=== PATIENT | female | born 1990 | race Caucasian/White ===

== ENCOUNTER 2017-06-11 07:15 | Emergency (ER) | payer BC ==
[2017-06-11] MEDS: LIDOCAINE 2% MDV 20 ML VIAL SC (08:00)
== END 2017-06-11 09:00 | disposition home or self-care (01) ==
LOC: M ED 07:15
DX: S92.512A Displaced fracture of proximal phalanx of left lesser toe(s), initial encounter for closed fracture (principal); X58.XXXA Exposure to other specified factors, initial encounter; Y92.89 Other specified places as the place of occurrence of the external cause; J45.909 Unspecified asthma, uncomplicated
CPT/HCPCS: 73660

== ENCOUNTER → 2018-10-20 | Outpatient (REF) | payer BC ==
[~2018-10-20] MED LIST: IBUP-1022 PO
[2018-10-20 21:18] LABS: CHLAMYDIA DNA AMPLIFICATION NEGATIVE (NEGATIVE); GC DNA AMPLIFICATION NEGATIVE (NEGATIVE)
== END ==
LOC: M LAB REF 17:07
PROVIDERS: ATTEND Family Medicine
DX: Z11.3 Encounter for screening for infections with a predominantly sexual mode of transmission (principal)

== ENCOUNTER → 2020-02-19 | Outpatient (CLI) | payer BC ==
[2020-02-19 18:58] LABS: GLUCOSE CHALLENGE TEST 1 HOUR 84 MG/DL (LESS THAN 140)
[2020-02-19 19:10] LABS: HEMOGLOBIN A1c 4.9 %
[2020-02-21 11:47] LABS: HEPATITIS B SURFACE ANTIGEN NEGATIVE (NEGATIVE)
[2020-02-21 12:15] LABS: HEPATITIS C VIRUS ABY INDEX 0.1 INDEX (<0.8); HIV 1&2 SCREEN CENTAUR NEGATIVE (NEGATIVE)
== END ==
LOC: M WUC 14:09
PROVIDERS: ATTEND Advanced Practice Midwife
DX: Z34.01 Encounter for supervision of normal first pregnancy, first trimester (principal); Z36.89 Encounter for other specified antenatal screening

== ENCOUNTER → 2020-04-07 | Outpatient (CLI) | payer BC ==
--- NOTE | 2020-04-07 17:42 | REP ---
INDICATION: ANATOMY COMPARISON: None. TECHNIQUE: Transabdominal obstetrical ultrasound with color Doppler evaluation. FINDINGS: Examination demonstrates a single live intrauterine in breech presentation. motion is identified by technologist. Placenta is noted posterior and grade 1 without evidence for placenta previa or abruption. Amniotic fluid volume is normal. Cervix measures 3.0 cm in length and appears closed.. Gestational age by LMP 18 weeks 6 days with GRAY 09/02/2020. Gestational age by current measurements 19 weeks 1 day with GRAY 08/31/2020. FHR equals 158 beats per minute. BPD: 4.2 cm 18 weeks 6 days HC: 16.3 cm 19 weeks 0 days AC: 13.6 cm 19 weeks 0 days FL: 3.1 cm 19 weeks 4 days HL: 2.9 cm 19 weeks 4 days HC/AC: 1.20 Estimated weight 280 grams (65thpercentile). Anatomical assessment demonstrates normal structures including cranium, choroid plexus, cavum, cerebellum/posterior fossa, facial features, lungs, four-chamber heart/ventricular outflow tracts, diaphragm, stomach, cord insertion/three-vessel cord, kidneys/bladder, spine, and extremities. Echogenic focus within the left cardiac ventricle likely prominent chordae tendinae a period IMPRESSION: Single live intrauterine in breech presentation demonstrating appropriate interval growth and estimated weight. Anatomical assessment is essentially complete and normal as described above. <Electronically signed by Javi Rodríguez > 04/07/20 [id number]
== END ==
LOC: M WHC 15:01
PROVIDERS: ATTEND Advanced Practice Midwife
DX: O32.1XX0 Maternal care for breech presentation, not applicable or unspecified (principal); Z3A.18 18 weeks gestation of pregnancy

== ENCOUNTER → 2020-04-14 | Outpatient (CLI) | payer BC ==
[2020-04-14 14:14] LABS: BASO % 0.3 % (0.0-1.0); EOS # 0.1 10^3/uL (0.0-0.5); EOS % 0.9 % (0.0-3.0); HEMATOCRIT 34.4 % (36.0-47.0); HEMOGLOBIN 11.3 g/dl (12.0-15.5); LYMPH # 1.9 10^3/uL (1.5-5.0); LYMPH % 17.3 % (24.0-44.0); MEAN CORPUSCULAR HGB CONC 32.8 g/dl (32.0-36.5); MEAN CORPUSCULAR VOLUME 94.2 fl (80.0-96.0); MONO # 0.8 10^3/uL (0.0-0.8); MONO % 7.6 % (0.0-5.0); NEUTROPHILS # 7.9 10^3/uL (1.5-8.5); NEUTROPHILS % 73.2 % (36.0-66.0); PLATELET COUNT, AUTOMATED 194 10^3/uL (150-450); RED BLOOD COUNT 3.65 10^6/uL (4.00-5.40); WHITE BLOOD COUNT 10.7 10^3/uL (4.0-10.0)
== END ==
LOC: M LAB 13:44
PROVIDERS: ATTEND Advanced Practice Midwife
DX: Z34.02 Encounter for supervision of normal first pregnancy, second trimester (principal); Z3A.00 Weeks of gestation of pregnancy not specified

== ENCOUNTER → 2020-06-05 | Outpatient (REF) | payer BC ==
[2020-06-05 10:42] LABS: HEMATOCRIT 34.6 % (36.0-47.0); HEMOGLOBIN 11.4 g/dl (12.0-15.5); MEAN CORPUSCULAR HEMOGLOBIN 32.9 pg (27.0-33.0); MEAN CORPUSCULAR HGB CONC 32.9 g/dl (32.0-36.5); PLATELET COUNT, AUTOMATED 184 10^3/uL (150-450); RED BLOOD COUNT 3.46 10^6/uL (4.00-5.40); WHITE BLOOD COUNT 10.7 10^3/uL (4.0-10.0)
== END ==
LOC: M PLALAB 08:04
PROVIDERS: ATTEND Specialist
DX: Z34.02 Encounter for supervision of normal first pregnancy, second trimester (principal); Z3A.00 Weeks of gestation of pregnancy not specified
CPT/HCPCS: 36415; 82950; 85027; 86850; 86900; 86901; J2790

== ENCOUNTER → 2020-08-04 | Outpatient (REF) | payer BC | LOC: M PLALAB 15:05 | PROVIDERS: ATTEND Obstetrics & Gynecology | DX: Z3A.35 35 weeks gestation of pregnancy (principal) ==

== ENCOUNTER → 2020-08-04 | Outpatient (REF) | payer BC | LOC: M SFHCWAGY 16:40 | PROVIDERS: ATTEND Obstetrics & Gynecology | DX: Z3A.35 35 weeks gestation of pregnancy (principal) ==

== ENCOUNTER 2020-08-28 19:34 | Inpatient (IN) | payer BC ==
[2020-08-28] VITALS (10 sets, daily range): BP systolic 122–146; BP diastolic 63–96
[~2020-08-28] VITALS: Ht 170.2 cm; Wt 111.9 kg
[2020-08-28] MEDS ORDERED: OXYTOCIN INJ 10 UNITS/ML VIAL (J2590) IM PRN (20:10)
[2020-08-28] MEDS ORDERED: TRANEXAMIC ACID INJection 1,000 MG in NS 100 ML IV PRN (20:10)
[2020-08-28] MEDS ORDERED: LACTATED RINGER'S 1000 ML IV STA (20:10)
[2020-08-28] MEDS ORDERED: OXYTOCIN DRIP 30 UNITS in IV 1 EA IV PRN (20:10)
[2020-08-28] MEDS ORDERED: METHYLERGONOVINE MALEATE 0.2 MG/ML VIAL (J2210) IM PRN (20:10)
[2020-08-28] MEDS ORDERED: LIDOCAINE 1% MDV 20ML VIAL INFIL PRN (20:10)
[2020-08-28] MEDS ORDERED: CARBOPROST TROMETHAMINE 250 MCG/ML AMP IM PRN (20:10)
--- NOTE | 2020-08-28 20:22 | HPEPDOC ---
Obstetrical History & Physical General Date of Admission Aug 28, 2020 at 19:34 Primary Care Physician: TAMI BOLAND CNM History of Present Illness Dick is a 30-year-old female who is a at 39.2 weeks with an GRAY of 09/02/20 based off of her LMP and consistent with her first trimester ultrasound. Her has been uncomplicated. She initiated care in her first trimester at [facility]. She presents to L&D with complaints of leaking of fluid that started 1800 today. Reports fluid to be clear. Reports active movement and contractions. She denies vaginal bleeding. 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 BREAST: . ABDOMEN: Gravid and non-tender to touch. FETUS: Is vertex (VTX) by sterile vaginal examination (SVE), fetus is vertex (VT X) by Sang. EFW 3800 grams. LUNGS: Clear to auscultation (CTA). EXTREMITIES: No edema. No clonus. Deep tendon reflexes (DTRs) + 2. Vital Signs/I&O Vital Signs Label Value Date Time Patient Temperature 99.1 degrees F 08/28/201957 Temperature Source Temporal 08/28/201957 Pulse 107 08/28/201957 Respiratory Rate 16 bpm 08/28/201957 Blood Pressure Assessment 139/91 (107) 08/28/201957 Pertinent Laboratoy Data Blood Type: O- RBC Antibody Screen: Negative HIV: Negative Hepatitis B: Negative Hepatitis C: Negative Rapid Plasma Reagin: Nonreactive Rubella: Immune Chlamydia/Gonorrhea: Negative Group B Streptococcus: Negative Glucose Tolerance Test: 94 Vaginal Examination Dilation: 3 cm (3-4) Effacement: 90% Station: -2 Cervical Consistency: Medium Cervical Position: Posterior Position: Vertex (occiput) Assessment Heart Rate (FHR): 130 Variability: Moderate Accelerations: Positive Decelerations: None Tocometer Contractions: Yes Frequency: regular, other (3-8 minutes) Multi-drug resistant Organism: No history of MDRO Assessment/Plan Assessment IUP at 39.2 weeks gestation SROM Category I FHR tracing GBS negative Plan Admit to L&D. OOB ad sirena. Diet: clears. Group B Streptococcus (GBS) negative. Patient has had slightly elevated blood pressures today. Labs and intravenous (IV) per unit protocol. Preeclamptic labs ordered. Counseled on Pitocin for augmentation of labor if needed Lactated Ringers (LR): Bolus 800 mL prior to epidural, then at 125 mL/hr. Anticipate cervical change. C-S as appropriate. TAMI BOLAND CNM Aug 28, 2020 20:22
[2020-08-28 20:29] LABS: HEMATOCRIT 36.3 % (36.0-47.0); HEMOGLOBIN 12.6 g/dl (12.0-15.5); MEAN CORPUSCULAR HEMOGLOBIN 33.3 pg (27.0-33.0); MEAN CORPUSCULAR HGB CONC 34.7 g/dl (32.0-36.5); PLATELET COUNT, AUTOMATED 136 10^3/uL (150-450); RED BLOOD COUNT 3.78 10^6/uL (4.00-5.40); WHITE BLOOD COUNT 12.1 10^3/uL (4.0-10.0)
[2020-08-28] MEDS ORDERED: PRENTAB9 PO (20:51)
[2020-08-28 21:02] LABS: ALT/SGPT 27 U/L (12-78); BILIRUBIN,TOTAL 0.2 MG/DL (0.2-1.0); CREATININE FOR GFR 0.66 MG/DL (0.55-1.30); GLOMERULAR FILTRATION RATE > 60.0 (>60); LDH LACTATE DEHYDROGENASE 207 U/L (84-246); URIC ACID 3.7 MG/DL (2.6-6.0)
[2020-08-28] MEDS ORDERED: OXYTOCIN DRIP 30 UNITS in IV 1 EA IV SCH (21:05)
[2020-08-28] MEDS ORDERED: FENTANYL 2MCG/ML ROPIVACAINE 0.2% IN 0.9% NACL 100ML IVBAG As Ordered ONE (23:25)
[2020-08-28] MEDS ORDERED: EPIDURAL COMMENT XX SCH (23:50)
[2020-08-28] MEDS ORDERED: NALOXONE INJ 0.4MG/1ML VIAL (J2310 PER 1MG) IV PRN (23:50)
[2020-08-28] MEDS ORDERED: EPIDURAL/PCA KEYS XX PRN (23:50)
[2020-08-28] MEDS ORDERED: diphenhydrAMINE 50MG/ML VIAL (J1200) IV PRN (23:50)
[2020-08-28] MEDS ORDERED: ePHEDrine SULFATE 25 MG/5 ML(5MG/ML) SYRINGE IV PRN (23:50)
[2020-08-28] MEDS ORDERED: ONDANSETRON 4MG/2ML VIAL IV PRN (23:50)
[2020-08-28] MEDS ORDERED: FENTANYL/ROPIVACAINE/NACL BAG 100 ML EPIDURAL SCH (23:50)
[2020-08-28] MEDS ORDERED: REFRIGERATOR IV KEYS XX PRN (23:50)
[2020-08-28] MEDS ORDERED: LACTATED RINGER'S 1000 ML IV PRN (23:50)
[2020-08-29] VITALS (30 sets, daily range): BP systolic 85–141; BP diastolic 46–77
[2020-08-29] MEDS ORDERED: ePHEDrine SULFATE 25 MG/5 ML(5MG/ML) SYRINGE As Ordered ONE (00:14)
[2020-08-29] MEDS: LR 1,000 ML IV SCH ×3 (00:34→04:05)
[2020-08-29 01:07] LABS: CREATININE,RANDOM URINE 27.5 MG/DL; TOTAL PROTEIN,RANDOM URINE 14.1 MG/DL (0.0-12.0)
--- NOTE | 2020-08-29 02:31 | IPNPDOC ---
Obstetrical Progress Note Date of Service Aug 29, 2020 Subjective Patient reports she is comfortable with her epidural. Objective Vital Signs Date Time Temp Pulse Resp B/P (MAP) Pulse Ox O2 Delivery O2 Flow Rate FiO2 08/29/20 01:07 70 16 125/58 (80) 08/29/20 00:29 98.2 Assessment Heart Rate (FHR): 120 Variability: Moderate Accelerations: Positive Decelerations: Early, Variable Heart Rate Tracing: Category I (variable noted with position change and resolved once repositioned. Now Category I FHR tracing. ) Tocometer Contractions: Yes Frequency: regular Strength: palpated as strong Sterile Vaginal Examination Dilation: 8 cm Effacement (%): 90% Station: -1 Cervical Consistency: Soft Cervical Position: Anterior Postion/Presentation: Cephalic presentation Assessment and Plan Age: 30 : 1 Term: 0 Pre-term: 0 Abortions: 0 Livin EGA at Admission: 39.2 Weeks & Days 39.3 today Status: Reassuring Group B Streptococcus: Negative Anticipate: Vaginal Delivery Additional Comments IV Pitocin turned off. Was at 4 mu/min. Moderate amount of bloody show noted. TAMI BOLAND CNM Aug 29, 2020 02:31
--- NOTE | 2020-08-29 04:46 | IPNPDOC ---
Obstetrical Progress Note Date of Service Aug 29, 2020 Subjective Patient reports she is comfortable with her epidural. Objective Vital Signs Date Time Temp Pulse Resp B/P (MAP) Pulse Ox O2 Delivery O2 Flow Rate FiO2 08/29/20 04:17 80 16 124/68 (86) 08/29/20 03:46 99.7 Assessment Heart Rate (FHR): 120 Variability: Moderate Accelerations: Positive Decelerations: Early, Variable Tocometer Contractions: Yes Frequency: regular Sterile Vaginal Examination Dilation: 9 cm (Anterior lip) Effacement (%): 100% Station: 0 Postion/Presentation: Cephalic presentation Assessment and Plan Status: Reassuring Group B Streptococcus: Negative Anticipate: Vaginal Delivery TAMI BOLAND CNM Aug 29, 2020 04:45
[2020-08-29] MEDS ORDERED: RHOGAM 300 MCG (1500 IU) INJ (J2790) IM SCH ×2 (07:35→10:30)
[2020-08-29] MEDS ORDERED: ACETAMINOPHEN TAB 650MG DOSE (2X325MG) PO PRN (07:35)
[2020-08-29] MEDS ORDERED: DOCUSATE SODIUM 100MG CAPSULE PO PRN (07:35)
[2020-08-29] MEDS ORDERED: OXYTOCIN DRIP 30 UNITS in IV 1 EA IV SCH (07:35)
[2020-08-29] MEDS ORDERED: MEASLES,MUMPS,RUBELLA VACCINE INJ (MMR-II) (90707) SC SCH (07:35)
[2020-08-29] MEDS ORDERED: ANUSOL HC CREAM 30GM TOP PRN (07:35)
[2020-08-29] MEDS ORDERED: DIBUCAINE 1% OINTMENT 30GM TOP PRN (07:35)
[2020-08-29] MEDS ORDERED: METHYLERGONOVINE MALEATE 0.2 MG TAB PO PRN (07:35)
[2020-08-29] MEDS ORDERED: IBUPROFEN 600MG TAB PO PRN (07:35)
--- NOTE | 2020-08-29 08:10 | DNPDOC ---
[facility] Delivery Note Delivery Note DATE OF DELIVERY: 08/29/20 at 0555 PREDELIVERY DIAGNOSIS: 39-3/7 weeks' gestation and labor. POST DELIVERY DIAGNOSIS: Delivered. PROCEDURE: Spontaneous vaginal delivery. 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 ESTIMATED BLOOD LOSS: 700 mL. FINDINGS: 6 pounds 15 ounces; 3140 grams; female , Score 9/9, nuchal cord times x1 tight; left vaginal wall laceration causing EBL of 700 cc. DELIVERY SUMMARY: Dick is a 30-year-old female who is now a who presented to L&D in active labor with SROM. 563.She requested an epidural for pain management. The patient progressed to fully dilated at 0525 and pushed to a living female in the NERY position with restitution to ROT. A tight nuchal cord was noted. The anterior shoulder delivered with ease and the corpus immediately followed via [place]. The baby was placed on the maternal abdomen active and crying. The cord was clamped x2 and cut by the FOB. A 3-vessel cord was noted. The placenta delivered spontaneously and intact at at 0600. The vagina, cervix and perineum was inspected and found to have a second degree perineal laceration with a deep left, anterior vaginal wall laceration that extended back to the cervix. The vaginal wall laceration was repaired with the help of Dr. Houser. Both were repaired with a 3.[address]-1. Mom plans to formula feed. They are naming her "Stephanie." Both mom and baby are in stable condition. All counts of instruments and sponges are correct. TAMI SANTOYO CNM Aug 29, 2020 08:10
[2020-08-29] MEDS: PRENATAL VITAMINS CHEWABLE TABLET PO SCH (10:46)
[2020-08-29] MEDS: IBUPROFEN 800 MG TAB PO PRN ×2 (10:46→20:28)
[2020-08-29] MEDS: ACETAMINOPHEN 500 MG TAB PO PRN (13:54)
[2020-08-30] MEDS: ACETAMINOPHEN 500 MG TAB PO PRN (05:42)
[2020-08-30 06:00] VITALS: BP 126/62
[2020-08-30] MEDS: PRENATAL VITAMINS CHEWABLE TABLET PO SCH (07:58)
== END 2020-08-30 13:35 | disposition home or self-care (01) | DRG 560 ==
LOC: M LDI 19:34 → M OBS 08-29 10:27
PROVIDERS: ADMIT Advanced Practice Midwife; ATTEND Advanced Practice Midwife
PROC: 10E0XZZ Delivery of Products of Conception, External Approach (ICD-10-PCS; principal; 2020-08-29)
PROC: 0KQM0ZZ Repair Perineum Muscle, Open Approach (ICD-10-PCS; 2020-08-29)
DX: O69.1XX0 Labor and delivery complicated by cord around neck, with compression, not applicable or unspecified (principal); O70.1 Second degree perineal laceration during delivery; Z37.0 Single live birth; Z3A.39 39 weeks gestation of pregnancy

== ENCOUNTER → 2021-07-21 | Outpatient (CLI) | payer BC ==
[~2021-07-21] MED LIST changes: +PRENTAB9 PO
[2021-07-21 09:23] LABS: HEMATOCRIT 37.9 % (36.0-47.0); HEMOGLOBIN 13.1 g/dl (12.0-15.5); MEAN CORPUSCULAR HEMOGLOBIN 31.3 pg (27.0-33.0); MEAN CORPUSCULAR HGB CONC 34.6 g/dl (32.0-36.5); MEAN CORPUSCULAR VOLUME 90.5 fl (80.0-96.0); PLATELET COUNT, AUTOMATED 227 10^3/uL (150-450); RED BLOOD COUNT 4.19 10^6/uL (4.00-5.40); WHITE BLOOD COUNT 6.6 10^3/uL (4.0-10.0)
[2021-07-21 10:48] LABS: GC DNA AMPLIFICATION NEGATIVE (NEGATIVE)
[2021-07-24 14:38] LABS: HIV 1&2 SCREEN CENTAUR NEGATIVE (NEGATIVE)
== END ==
LOC: M LAB 08:20
PROVIDERS: ATTEND Advanced Practice Midwife
DX: Z34.92 Encounter for supervision of normal pregnancy, unspecified, second trimester (principal); Z36.89 Encounter for other specified antenatal screening

== ENCOUNTER → 2021-09-14 | Outpatient (CLI) | payer BC | LOC: M WHC 07:03 | PROVIDERS: ATTEND Advanced Practice Midwife | DX: O32.2XX0 Maternal care for transverse and oblique lie, not applicable or unspecified (principal); Z36.89 Encounter for other specified antenatal screening; Z3A.18 18 weeks gestation of pregnancy ==

== ENCOUNTER → 2021-10-31 | Outpatient (CLI) | payer BC | LOC: M WHC 15:30 | PROVIDERS: ATTEND Obstetrics & Gynecology | DX: O32.2XX0 Maternal care for transverse and oblique lie, not applicable or unspecified (principal); Z3A.27 27 weeks gestation of pregnancy ==

== ENCOUNTER → 2021-11-05 | Outpatient (CLI) | payer BC ==
[2021-11-05 13:40] LABS: HEMATOCRIT 36.9 % (36.0-47.0); HEMOGLOBIN 12.8 g/dl (12.0-15.5); MEAN CORPUSCULAR HEMOGLOBIN 33.2 pg (27.0-33.0); MEAN CORPUSCULAR HGB CONC 34.7 g/dl (32.0-36.5); MEAN CORPUSCULAR VOLUME 95.6 fl (80.0-96.0); PLATELET COUNT, AUTOMATED 164 10^3/uL (150-450); RED BLOOD COUNT 3.86 10^6/uL (4.00-5.40); WHITE BLOOD COUNT 7.5 10^3/uL (4.0-10.0)
[2021-11-05 15:21] LABS: GC DNA AMPLIFICATION NEGATIVE (NEGATIVE)
== END ==
LOC: M PLALAB 08:14
PROVIDERS: ATTEND Obstetrics & Gynecology
DX: Z34.92 Encounter for supervision of normal pregnancy, unspecified, second trimester (principal)

== ENCOUNTER → 2022-01-16 | Outpatient (CLI) | payer BC ==
[2022-01-16 17:24] LABS: HEMATOCRIT 34.6 % (36.0-47.0); HEMOGLOBIN 12.1 g/dl (12.0-15.5); MEAN CORPUSCULAR HEMOGLOBIN 34.1 pg (27.0-33.0); MEAN CORPUSCULAR VOLUME 97.5 fl (80.0-96.0); PLATELET COUNT, AUTOMATED 134 10^3/uL (150-450); RED BLOOD COUNT 3.55 10^6/uL (4.00-5.40); WHITE BLOOD COUNT 12.3 10^3/uL (4.0-10.0)
[2022-01-16 17:53] LABS: ALT/SGPT 13 U/L (12-78); BILIRUBIN,TOTAL 0.2 MG/DL (0.2-1.0); CREATININE FOR GFR 0.55 MG/DL (0.55-1.30); GLOMERULAR FILTRATION RATE > 60.0 (>60); LDH LACTATE DEHYDROGENASE 169 U/L (84-246); URIC ACID 2.9 MG/DL (2.6-6.0)
[2022-01-16 18:04] LABS: TOTAL PROTEIN,RANDOM URINE 33.2 MG/DL (0.0-12.0)
== END ==
LOC: M PLALAB 15:41
PROVIDERS: ATTEND Obstetrics & Gynecology
DX: O13.3 Gestational [pregnancy-induced] hypertension without significant proteinuria, third trimester (principal)

== ENCOUNTER → 2023-01-27 | Outpatient (REF) | payer BC ==
[~2023-01-27] MED LIST changes: +ACET-683 PO; +IBUP80TA PO
== END ==
LOC: M SFHCWAGY 18:24
PROVIDERS: ATTEND Advanced Practice Midwife
DX: Z12.4 Encounter for screening for malignant neoplasm of cervix (principal)
CPT/HCPCS: 87624; G0123

== ENCOUNTER → 2023-05-05 | Outpatient (CLI) | payer BC ==
[2023-05-05 07:59] LABS: BASO # 0.1 10^3/uL (0.0-0.2); BASO % 1.1 % (0.0-1.0); EOS # 0.1 10^3/uL (0.0-0.5); HEMATOCRIT 41.5 % (36.0-47.0); HEMOGLOBIN 14.1 g/dl (12.0-15.5); LYMPH # 1.2 10^3/uL (1.5-5.0); LYMPH % 27.1 % (24.0-44.0); MEAN CORPUSCULAR HEMOGLOBIN 31.3 pg (27.0-33.0); MONO # 0.5 10^3/uL (0.0-0.8); NEUTROPHILS # 2.6 10^3/uL (1.5-8.5); NEUTROPHILS % 57.6 % (36.0-66.0); PLATELET COUNT, AUTOMATED 216 10^3/uL (150-450); RED BLOOD COUNT 4.51 10^6/uL (4.00-5.40); WHITE BLOOD COUNT 4.5 10^3/uL (4.0-10.0)
[2023-05-05 08:25] LABS: FREE T4 1.01 NG/DL (0.89-1.76); THYROID STIMULATING HORMONE 1.468 uIU/ML (0.55-4.78); TOTAL 25(OH) VITAMIN D 26.9 NG/ML (20.0-100.0)
[2023-05-05 08:28] LABS: ALBUMIN 4.1 G/DL (3.2-5.2); ALKALINE PHOSPHATASE 52 U/L (46-116); ALT/SGPT 19 U/L (7.0-40); AST/SGOT 9 U/L (<34); BILIRUBIN,TOTAL 0.5 MG/DL (0.3-1.2); BLOOD UREA NITROGEN 12 MG/DL (9-23); CALCIUM LEVEL 9.4 MG/DL (8.5-10.1); CARBON DIOXIDE LEVEL 26 MMOL/L (20-31); CHLORIDE LEVEL 108 MMOL/L (98-107); CHOLESTEROL LEVEL 134 MG/DL (<200); CREATININE FOR GFR 0.81 MG/DL (0.55-1.30); GLOMERULAR FILTRATION RATE > 60.0 (>60); GLUCOSE, FASTING 102 MG/DL (60-100); HDL CHOLESTEROL 40.5 MG/DL (>40); LDL CHOLESTEROL 83.1 MG/DL (<100); NON-HDL-C 93.5 MG/DL; POTASSIUM SERUM 4.3 MMOL/L (3.5-5.1); SODIUM LEVEL 141 MMOL/L (136-145); TOTAL PROTEIN 6.6 G/DL (5.7-8.2); TRIGLYCERIDES LEVEL 52 MG/DL (<150)
== END ==
LOC: M LAB 06:40
PROVIDERS: ATTEND Family Medicine
DX: E55.9 Vitamin D deficiency, unspecified (principal); Z13.220 Encounter for screening for lipoid disorders; Z13.29 Encounter for screening for other suspected endocrine disorder; Z13.0 Encounter for screening for diseases of the blood and blood-forming organs and certain disorders involving the immune mechanism

== ENCOUNTER 2023-09-17 07:37 | Emergency (ER) | payer BC ==
[~2023-09-17] VITALS: Ht 170.2 cm; Wt 91.9 kg
[2023-09-17] MEDS ORDERED: NOXI1TAB PO (07:49)
[2023-09-17 08:31] LABS: LIPASE 27 U/L (12-53)
[2023-09-17 08:32] LABS: CPK CREATINE PHOSPHOKINASE 83 U/L (34-145)
[2023-09-17 08:33] LABS: ALBUMIN 3.8 G/DL (3.2-5.2); ALKALINE PHOSPHATASE 67 U/L (46-116); ALT/SGPT 22 U/L (7.0-40); AST/SGOT 12 U/L (<34); BILIRUBIN,DIRECT 0.2 MG/DL (<0.4); BILIRUBIN,TOTAL 0.6 MG/DL (0.3-1.2); BLOOD UREA NITROGEN 17 MG/DL (9-23); CALCIUM LEVEL 8.9 MG/DL (8.5-10.1); CARBON DIOXIDE LEVEL 25 MMOL/L (20-31); CHLORIDE LEVEL 106 MMOL/L (98-107); CK-MB VALUE MASS < 1.0 NG/ML (<3.6); CREATININE FOR GFR 0.77 MG/DL (0.55-1.30); GLOMERULAR FILTRATION RATE > 60.0 (>60); GLUCOSE, FASTING 92 MG/DL (60-100); POTASSIUM SERUM 4.3 MMOL/L (3.5-5.1); SODIUM LEVEL 139 MMOL/L (136-145); TOTAL PROTEIN 6.6 G/DL (5.7-8.2)
[2023-09-17 08:34] LABS: THYROID STIMULATING HORMONE 2.071 uIU/ML (0.55-4.78)
[2023-09-17 08:35] LABS: FREE T4 1.07 NG/DL (0.89-1.76)
[2023-09-17] MEDS: KETOROLAC 30 MG/ML 1ML VIAL IV ONE (08:40)
[2023-09-17 09:02] LABS: BASO # 0.1 10^3/uL (0.0-0.2); BASO % 0.5 % (0.0-1.0); EOS # 0.2 10^3/uL (0.0-0.5); EOS % 1.1 % (0.0-3.0); HEMATOCRIT 42.2 % (36.0-47.0); HEMOGLOBIN 14.2 g/dl (12.0-15.5); LYMPH # 1.7 10^3/uL (1.5-5.0); LYMPH % 12.5 % (24.0-44.0); MEAN CORPUSCULAR HEMOGLOBIN 31.8 pg (27.0-33.0); MEAN CORPUSCULAR HGB CONC 33.6 g/dl (32.0-36.5); MEAN CORPUSCULAR VOLUME 94.4 fl (80.0-96.0); MONO # 1.1 10^3/uL (0.0-0.8); MONO % 8.3 % (2.0-8.0); NEUTROPHILS # 10.2 10^3/uL (1.5-8.5); NEUTROPHILS % 77.1 % (36.0-66.0); PLATELET COUNT, AUTOMATED 150 10^3/uL (150-450); RED BLOOD COUNT 4.47 10^6/uL (4.00-5.40); WHITE BLOOD COUNT 13.3 10^3/uL (4.0-10.0)
[2023-09-17 10:16] LABS: CK-MB VALUE MASS < 1.0 NG/ML (<3.6)
[2023-09-17 10:18] LABS: CPK CREATINE PHOSPHOKINASE 71 U/L (34-145)
[2023-09-17 10:37] VITALS: BP 120/66; TEMP 98.5; O2SAT 100
== END 2023-09-17 10:45 | disposition home or self-care (01) ==
LOC: M ED 07:37
DX: R07.89 Other chest pain (principal); J45.909 Unspecified asthma, uncomplicated; C43.9 Malignant melanoma of skin, unspecified; Z91.048 Other nonmedicinal substance allergy status; Z11.52 Encounter for screening for COVID-19
CPT/HCPCS: 71046; 80048; 80076; 82550; 82553; 83690; 84439; 84443; 84484; 85025; 85379; 87486; 87581; 87633; 87798; 93005; 96374; 99284; J1885

== ENCOUNTER 2025-02-16 22:58 | Emergency (ER) | payer BC ==
[~2025-02-16] VITALS: Ht 170.2 cm; Wt 108.7 kg
[~2025-02-16 22:58] MED LIST changes: -IBUP-1022 PO; +IBUP600T42 PO; +NOXI1TAB PO
[2025-02-16 23:00] VITALS: BP 142/85; TEMP 96.9; O2SAT 100
== END 2025-02-17 00:18 | disposition left against medical advice (07) ==
LOC: M ED 22:58
DX: Z53.21 Procedure and treatment not carried out due to patient leaving prior to being seen by health care provider (principal)

== ENCOUNTER → 2025-04-28 | Outpatient (REF) | payer BC ==
[2025-04-30 14:18] LABS: HPV APTIMA Not Detected (Not Detected)
== END ==
LOC: M SFHCWAGY 12:58
PROVIDERS: ATTEND Physician Assistant
DX: Z12.4 Encounter for screening for malignant neoplasm of cervix (principal)
CPT/HCPCS: 87624; G0123